=== PATIENT | female | born 1960 | race Two or more races ===

== ENCOUNTER → 2018-04-01 | Day surgery (SDC) | payer OTHER ==
[~2018-04-01] MED LIST: HYOSCYAMINE0.125 M1 SL; INTESTINEX680 MG PO; LOSARTAN POTASS50 MG; OMEPRAZOLE20 MG PO; PERCOCET 5/3251 TAB PO; PNEU16DI2; TOPROL XL100 M1 PO
== END | disposition home or self-care (01) ==
LOC: ADM 03-22 14:00 → AMB-ENDOS 05:50
DX: D12.2 Benign neoplasm of ascending colon (principal); K57.30 Diverticulosis of large intestine without perforation or abscess without bleeding; K64.0 First degree hemorrhoids